=== PATIENT | female | born 1950 | race Caucasian/White ===

== ENCOUNTER 2017-12-13 08:42 | Outpatient (CLI) | payer MEDICARE, OTHER ==
[2013-04-24 09:55] VITALS: BP 130/66
== END 2017-12-13 08:44 ==
LOC: LAB 08:42
PROVIDERS: ATTEND Family Medicine
DX: E78.00 Pure hypercholesterolemia, unspecified (principal)
CPT/HCPCS: 36415; 80061

== ENCOUNTER 2018-09-28 10:24 | Outpatient (CLI) | payer MEDICARE, MEDICAID ==
[2013-04-24 09:55] VITALS: BP 130/66
== END 2018-09-28 10:26 ==
LOC: LAB 10:24
PROVIDERS: ATTEND Family Medicine
DX: E55.9 Vitamin D deficiency, unspecified (principal); E11.9 Type 2 diabetes mellitus without complications; E78.00 Pure hypercholesterolemia, unspecified
CPT/HCPCS: 36415; 80061; 82306